=== PATIENT | male | born 1950 | race Caucasian/White ===

== ENCOUNTER 2016-12-24 12:48 | Emergency (ER) | payer OTHER ==
[~2016-12-24] VITALS: Ht 167.6 cm; Wt 77.1 kg
[~2016-12-24 12:48] MED LIST: AMOXICILLIN500 MG ORAL; CYCLOBENZAPRINE10 MG ORAL; FLOMAX0.4 MG ORAL; IBUPROFEN600 MG ORAL; PROSCAR5 MG ORAL
[2016-12-24] MEDS ORDERED: ATORVASTATIN CA10 MG ORAL (13:04)
[2016-12-24] MEDS ORDERED: METFORMIN HCL500 M1 ORAL (13:04)
[2016-12-24] MEDS ORDERED: ASPIR 8181 MG ORAL (13:04)
[2016-12-24 13:10] VITALS: BP 123/68
[2016-12-24] MEDS ORDERED: TAMIFLU75 MG ORAL (13:31)
[2016-12-24] MEDS ORDERED: PROMETHAZINE-C118 M1 ORAL (13:31)
[2016-12-24 13:48] VITALS: BP 123/68
--- NOTE | 2016-12-25 09:26 | Emergency Room Report ---
History of Present Illness General Chief Complaint: Flu Like Symptoms Source: Patient Present Illness HPI 66-year-old male presents ED complaining of runny nose, cough, bodyaches x1 day. States his low-grade fever. Notes generalized chills and bodyaches. 5/ 10. dull. Nonradiating. No other aggravating or relieving factors. Notes productive cough. States he did not receive flu vaccine this year. Denies any other associated symptoms Allergies: Uncoded Allergies: VITAMIN GROUP B (Allergy, Mild, Rash, 08/13/14) Patient History Past Medical History: DM Past Surgical History: none Pertinent Family History: none Social History: Denies: alcohol use, drug use, smoking Immunizations: UTD Reviewed Nursing Documentation: PMH: Agreed, PSxH: Agreed Nursing Documentation-PMH Past Medical History: No Stated History Hx Diabetes: Yes Review of Systems All Other Systems: negative except mentioned in HPI Physical Exam Vital Signs Date Time Temp Pulse Resp B/P Pulse Ox O2 Delivery O2 Flow Rate FiO2 12/24/16 12:59 99.5 86 16 123/68 99 Room Air Sp02 EP Interpretation: reviewed, normal General Appearance: no apparent distress, alert, GCS 15, non-toxic Head: normocephalic, atraumatic Eyes: bilateral eye PERRL, bilateral eye normal inspection ENT: hearing grossly normal, normal pharynx, no angioedema, normal voice Neck: full range of motion, supple/symm/no masses Respiratory: chest non-tender, lungs clear, normal breath sounds, speaking full sentences Cardiovascular #1: regular rate, rhythm, no edema Cardiovascular #2: 2+ carotid (R), 2+ carotid (L), 2+ radial (R), 2+ radial (L) , 2+ dorsalis pedis (R), 2+ dorsalis pedis (L) Gastrointestinal: normal bowel sounds, non tender, soft, non-distended, no guarding, no rebound Rectal: deferred Genitourinary: normal inspection, no CVA tenderness Musculoskeletal: back normal, gait/station normal, normal range of motion, non- tender Neurologic: alert, oriented x3, responsive, motor strength/tone normal, sensory intact, speech normal Psychiatric: judgement/insight normal, memory normal, mood/affect normal, no suicidal/homicidal ideation Reflexes: 3+ bicep (R), 3+ bicep (L), 3+ tricep (R), 3+ tricep (L), 3+ knee (R) , 3+ knee (L) Skin: normal color, no rash, warm/dry, well hydrated Lymphatic: no adenopathy Medical Decision Making Diagnostic Impression: Primary Impression: Influenza-like symptoms ER Course Hospital Course 66-year-old M presents to ED complaining of fever + bodyaches + cough x1 day Differential diagnoses include: URI, pharyngitis, otitis media, influenza Clinical course Patient placed on stretcher. After initial history physical exam reveals an elderly male in no acute distress. Bilateral TM unremarkable, no pharyngeal erythema. Lungs clear. No CVA tenderness. Clinical findings consistent with influenza. Given that I will treat with Tamiflu Diagnosis - influenza-like symptoms Stable and discharged home with prescriptions for tamiflu. drink plenty of fluids. Instructed to followup with PMD. Return to ED if symptoms recur or worsen Last Vital Signs Date Time Temp Pulse Resp B/P Pulse Ox O2 Delivery O2 Flow Rate FiO2 12/24/16 13:48 99.5 85 16 123/68 99 Room Air Status: improved Disposition: HOME, SELF-CARE Condition: Stable Scripts Codeine/Promethazine Hcl* (PROMETHAZINE-CODEINE SYRUP*) 118 Ml Syrup 5 ML ORAL Q6H Y for For Cough for 5 Days, ML 0 Refills Prov: MANNY ABBASI M.D. 12/24/16 Oseltamivir Phosphate (Tamiflu) 75 Mg Capsule 75 MG ORAL TWICE A DAY for 5 Days, CAP Prov: MANNY ABBASI M.D. 12/24/16 Referrals: NOT CHOSEN JOAN/,REFERRING (PCP) Patient Instructions: Influenza, Adult, [id number] MANNY ABBASI M.D. Dec 25, 2016 09:26
== END 2016-12-24 13:45 | disposition home or self-care (01) ==
LOC: EMR 13:29
DX: J11.1 Influenza due to unidentified influenza virus with other respiratory manifestations (principal); E11.9 Type 2 diabetes mellitus without complications
CPT/HCPCS: 99284

== ENCOUNTER 2017-06-17 17:07 | Emergency (ER) | payer OTHER ==
[~2017-06-17] VITALS: Ht 165.1 cm; Wt 71.7 kg
[~2017-06-17 17:07] MED LIST changes: +ASPIR 8181 MG ORAL; +ATORVASTATIN CA10 MG ORAL; +METFORMIN HCL500 M1 ORAL; +PROMETHAZINE-C118 M1 ORAL; +TAMIFLU75 MG ORAL
--- NOTE | 2017-06-17 17:23 | Emergency Room Report ---
History of Present Illness General Chief Complaint: Earache Source: Patient Present Illness HPI 66 YO Male presents to the ED C/O fullness and pain in the ears bilaterally with decreased hearing. pt. states he has been trying to clean his ears with toilet paper. denies q-tip use. denies fevers, chills, external ear pain, recent illness, PHILIP , or congestion. denies rashes or ear d/c. denies trauma to the ears. Pt. states he needs his ear cleaned out. Denies CP, Palpitations, LOC, AMS, dizziness, Changes in Vision, Sensation, paresthesias, or a sudden severe headache. Allergies: Uncoded Allergies: VITAMIN GROUP B (Allergy, Mild, Rash, 08/13/14) Patient History Past Medical History: see triage record Past Surgical History: none Pertinent Family History: none Immunizations: UTD Reviewed Nursing Documentation: PMH: Agreed, PSxH: Agreed Nursing Documentation-PMH Past Medical History: No History, Except For Hx Diabetes: Yes Review of Systems All Other Systems: negative except mentioned in HPI Physical Exam Vital Signs Date Time Temp Pulse Resp B/P Pulse Ox O2 Delivery O2 Flow Rate FiO2 06/17/17 17:11 97.3 59 18 141/55 98 Room Air Sp02 EP Interpretation: reviewed, normal General Appearance: no apparent distress, alert, GCS 15, non-toxic Head: normocephalic, atraumatic Eyes: bilateral eye PERRL, bilateral eye normal inspection ENT: hearing grossly normal, normal pharynx, no angioedema, normal voice, other - excessive cerumen in the both ear canals there is no evidence of TM infection or rupture, canal is WNL. no external ear tenderness. Neck: full range of motion, supple/symm/no masses Respiratory: lungs clear, normal breath sounds, speaking full sentences Cardiovascular #1: regular rate, rhythm, no edema Musculoskeletal: back normal, gait/station normal, normal range of motion, non- tender Neurologic: alert, oriented x3, responsive, motor strength/tone normal, sensory intact, speech normal Psychiatric: judgement/insight normal, memory normal, mood/affect normal Skin: normal color, no rash, warm/dry, well hydrated Lymphatic: no adenopathy Medical Decision Making PA Attestation Dr. sullivan is my supervising Physician whom patient management has been discussed with. Diagnostic Impression: Primary Impression: Excessive cerumen in both ear canals ER Course 66 YO Male presents to the ED C/O fullness and pain in the ears bilaterally with decreased hearing. pt. states he has been trying to clean his ears with toilet paper. denies q-tip use. denies fevers, chills, external ear pain, recent illness, PHILIP , or congestion. denies rashes or ear d/c. denies trauma to the ears. Pt. states he needs his ear cleaned out. Denies CP, Palpitations, LOC, AMS, dizziness, Changes in Vision, Sensation, paresthesias, or a sudden severe headache.. Ddx considered but are not limited to OM, OE, mastoiditis, TM perforation, FB, cerumen impaction. Vital signs: are WNL, pt. is afebrile H&PE are most consistent with possible ear infection will assess with otoscopy ORDERS: none required at this time, the diagnosis is clinical -OTOSCOPY: excessive cerumen in the both ear canals there is no evidence of TM infection or rupture, canal is WNL. no external ear tenderness. ED INTERVENTIONS: -Ear irrigation performed by implementation technician. - re-examination: pt. continues to have moderate cerumen in the right ear, d/ w pt. that he will be given a rx for debrox to soften the wax. Pt. is upset and wants his ear to be completely cleaned out today. d/w pt. that the medication will take several days to work. this was also d/w pt. by the on duty physician and ED nurse. pt. continues to be dissatisfied. d/w pt. that at this time he is stable for close out patient follow up. DISCHARGE: At this time pt. is stable for d/c to home. With rx for Debrox. Will provide printed patient care instructions, and any necessary prescriptions. Care plan and follow up instructions have been discussed with the patient prior to discharge. Last Vital Signs Date Time Temp Pulse Resp B/P Pulse Ox O2 Delivery O2 Flow Rate FiO2 06/17/17 17:11 97.3 59 18 141/55 98 Room Air Disposition: HOME, SELF-CARE Condition: Stable Scripts Carbamide Peroxide (DEBROX) 15 Ml Drops 10 DROP BOTH EARS TWICE A DAY for 4 Days, #15 ML 0 Refills Prov: Shira Mccormack P.A. 06/17/17 Patient Instructions: Anish Danielion Additional Instructions: Take medications as directed. Follow up with a Primary Care Provider in 3-5 days, even if your symptoms have resolved. --Please review list of primary care clinics, if you do not already have a primary care provider Return sooner to ED if new symptoms occur, or current symptoms become worse. - Please note that this Emergency Department Report was dictated using [employer] technology software, occasionally this can lead to erroneous entry secondary to interpretation by the dictation equipment. Shira Mccormack Jun 17, 2017 17:23
[2017-06-17 17:28] VITALS: BP 141/55
[2017-06-17] MEDS ORDERED: DEBROX15 M1 BOTH EARS (17:40)
[2017-06-17 18:10] VITALS: BP 141/55
== END 2017-06-17 18:10 | disposition home or self-care (01) ==
LOC: EMR 17:31
DX: H61.23 Impacted cerumen, bilateral (principal); E11.9 Type 2 diabetes mellitus without complications
CPT/HCPCS: 69210; 99283

== ENCOUNTER 2017-06-24 22:30 | Emergency (ER) | payer OTHER ==
[~2017-06-24] VITALS: Ht 172.7 cm; Wt 84.8 kg
[~2017-06-24 22:30] MED LIST changes: +DEBROX15 M1 BOTH EARS
[2017-06-24 23:00] VITALS: BP 156/70
[2017-06-24] MEDS ORDERED: AUGMENTIN 875-1 EAC1 ORAL (23:07)
--- NOTE | 2017-06-24 23:08 | Emergency Room Report ---
History of Present Illness General Chief Complaint: Puncture Wound Source: Patient Present Illness HPI Is a 66-year-old male with no significant past medical history. He presents with chief complaint of puncture wound to the left foot. He stepped on a merary nail about 4 hours ago. He was wearing tennis shoe. Denies any other injury. Throbbing pain to the sole of the foot. No other complaint. Allergies: Uncoded Allergies: VITAMIN GROUP B (Allergy, Mild, Rash, 08/13/14) Patient History Past Medical History: see triage record, old chart reviewed Past Surgical History: other Pertinent Family History: none Social History: Denies: smoking Immunizations: other Reviewed Nursing Documentation: PMH: Agreed, PSxH: Agreed Nursing Documentation-PMH Past Medical History: No History, Except For Hx Diabetes: Yes Review of Systems Eye: Denies: blurred vision, eye pain ENT: Denies: ear pain, nose congestion, throat swelling Respiratory: Denies: cough, shortness of breath Cardiovascular: Denies: chest pain, palpitations Gastrointestinal: Denies: abdominal pain, diarrhea, nausea, vomiting Musculoskeletal: Denies: back pain, joint pain Skin: Denies: rash Neurological: Denies: headache, numbness Endocrine: Denies: increased thirst, increased urine Hematologic/Lymphatic: Denies: easy bruising All Other Systems: negative except mentioned in HPI Physical Exam Vital Signs Date Time Temp Pulse Resp B/P Pulse Ox O2 Delivery O2 Flow Rate FiO2 06/24/17 22:51 97.7 62 16 156/70 100 Room Air Sp02 EP Interpretation: reviewed, normal General Appearance: well appearing, no apparent distress, alert Head: normocephalic, atraumatic Eyes: bilateral eye EOMI, bilateral eye PERRL ENT: hearing grossly normal, normal pharynx Neck: full range of motion, supple, no meningismus Respiratory: chest non-tender, lungs clear, normal breath sounds Cardiovascular #1: regular rate, rhythm, no murmur Gastrointestinal: normal bowel sounds, non tender, no mass, no organomegaly, no bruit, non-distended Musculoskeletal: back normal, gait/station normal, normal range of motion, other - Puncture wound to the sole of left foot. Tender to palpation. No abscess. Neurologic: alert, oriented x3 Psychiatric: mood/affect normal Skin: warm/dry Medical Decision Making Diagnostic Impression: Primary Impression: Puncture wound of left foot without foreign body Qualified Codes: S91.332A - Puncture wound without foreign body, left foot, initial encounter ER Course patient with a puncture wound to the foot. No foreign body. No abscess. We' ll discharge home. Antibiotics initiated here. Tetanus updated. Last Vital Signs Date Time Temp Pulse Resp B/P Pulse Ox O2 Delivery O2 Flow Rate FiO2 06/24/17 22:51 97.7 62 16 156/70 100 Room Air Status: improved Disposition: HOME, SELF-CARE Condition: Stable Scripts Amoxicillin/Potassium Clav 875-125* (AUGMENTIN 875-125 TABLET*) 1 Each Tablet 1 TAB ORAL TWICE A DAY, #14 TAB Prov: ARIANNE JHA M.D. 06/24/17 Patient Instructions: Puncture Wound Additional Instructions: Followup with your DrOnesimo in 2 to 3 days for recheck. Keep wound clean. Return if worse. ARIANNE JHA M.D. Jun 24, 2017 23:08
[2017-06-24] MEDS ORDERED: Augmentin 875mg Tab ORAL ONE (23:15)
[2017-06-24] MEDS ORDERED: Bacitracin Oint UD TOPIC ONE (23:15)
[2017-06-24] MEDS ORDERED: Tetanus/Diptheria/Pertussis Vaccine 0.5ml Syr IM ONE (23:15)
[2017-06-24 23:36] VITALS: BP 156/70
== END 2017-06-24 23:36 | disposition home or self-care (01) ==
LOC: EMR 23:30
DX: S91.332A Puncture wound without foreign body, left foot, initial encounter (principal); E11.9 Type 2 diabetes mellitus without complications; H61.23 Impacted cerumen, bilateral; Z23 Encounter for immunization; W45.0XXA Nail entering through skin, initial encounter; Y93.9 Activity, unspecified; Y92.9 Unspecified place or not applicable; Z88.8 Allergy status to other drugs, medicaments and biological substances
CPT/HCPCS: 69210; 90471; 90715; 96372; 99283

== ENCOUNTER 2019-07-05 11:25 | Emergency (ER) | payer MEDICARE, OTHER ==
[~2019-07-05] VITALS: Ht 162.6 cm; Wt 79.4 kg
[~2019-07-05 11:25] MED LIST changes: +AUGMENTIN 875-1 EAC1 ORAL
--- NOTE | 2019-07-05 11:40 | NUR ---
ED Nurse Note: pt walked in due to a mechanical fall happend today @11am. pt tripped on an uneven pavement near [place] [facility]. denies head trauma. pt presents with abrasion on the left knee and on the right palm. pt able to ambulate. will continue to monitor.
[2019-07-05] MEDS ORDERED: Neosporin Oint Ud Pkt TOPIC ONE (12:15)
--- NOTE | 2019-07-05 13:48 | Emergency Room Report ---
History of Present Illness General Chief Complaint: Lower Extremity Injury Source: Patient (Zeus Agrawal) Present Illness HPI 68-year-old male with history of hypertension diabetes both controlled here complaining of pain over her left knee as well as bilateral hands after a fall today. Patient reports that he fell without hitting his head or losing consciousness however try to prevent further injury by using outstretched hands. Superficial abrasion over the left knee and patient has full flexion and extension movements of the knee. Rates his pain over both hands 5 out of 10 without radiation. Denies tingling and numbness. No abrasions or lacerations noted on both hands. Denies other injuries, chest pain, shortness of breath, palpitation, abdominal pain, and other associated symptoms. Patient is up-to-date with his tetanus shot. (Zeus Agrawal) Allergies: Uncoded Allergies: VITAMIN GROUP B (Allergy, Mild, Rash, 08/13/14) Patient History Past Medical History: see triage record Past Surgical History: unable to obtain Pertinent Family History: none Immunizations: UTD Reviewed Nursing Documentation: PMH: Agreed; PSxH: Agreed (Zeus Agrawal) Nursing Documentation-PMH Past Medical History: No History, Except For Hx Diabetes: Yes (Zeus Agrawal) Review of Systems All Other Systems: negative except mentioned in HPI (Zeus Agrawal) Physical Exam Vital Signs Date Time Temp Pulse Resp B/P (MAP) Pulse Ox O2 Delivery O2 Flow Rate FiO2 07/05/19 11:28 97.5 70 18 148/83 (104) 98 Room Air Sp02 EP Interpretation: reviewed, normal General Appearance: no apparent distress, alert, GCS 15, non-toxic Head: normocephalic, atraumatic Eyes: bilateral eye normal inspection, bilateral eye PERRL ENT: hearing grossly normal, normal pharynx, no angioedema, normal voice Neck: full range of motion, supple/symm/no masses Respiratory: chest non-tender, lungs clear, normal breath sounds, speaking full sentences Cardiovascular #1: regular rate, rhythm, no edema, no murmur Cardiovascular #2: 2+ radial (R), 2+ radial (L), 2+ dorsalis pedis (R), 2+ dorsalis pedis (L) Gastrointestinal: non tender, soft Musculoskeletal: back normal, digits/nails normal, gait/station normal, non- tender, swelling - Palm of bilateral hands Neurologic: normal inspection, alert Psychiatric: normal inspection, judgement/insight normal Skin: abrasion - Left knee noninfected Lymphatic: normal inspection, no adenopathy (Zeus Agrawal) Medical Decision Making PA Attestation All diagnoses and treatment plans were reviewed and discussed with my supervising physician Dr. Irene (Zeus Agrawal) Medicare Attestation The history of Ginny Lugo has been reviewed and management options for him have been examined and discussed by Vladislav Irene. I have personally examined and interviewed the patient. (Vladislav Irene MD) Diagnostic Impression: Primary Impression: Contusion of right hand Additional Impressions: Contusion of left hand Abrasion, left knee, initial encounter ER Course 68-year-old male with history of hypertension diabetes both controlled here complaining of pain over her left knee as well as bilateral hands after a fall today. Patient reports that he fell without hitting his head or losing consciousness however try to prevent further injury by using outstretched hands. Superficial abrasion over the left knee and patient has full flexion and extension movements of the knee. Rates his pain over both hands 5 out of 10 without radiation. Denies tingling and numbness. No abrasions or lacerations noted on both hands. Denies other injuries, chest pain, shortness of breath, palpitation, abdominal pain, and other associated symptoms. Patient is up-to-date with his tetanus shot. Ddx considered but are not limited to: Hand sprain, hand sprain, hand fracture. Hand contusion, infected knee abrasion, noninfected knee abrasion, Vital signs: are WNL, pt. is afebrile H&PE are most consistent with : Bilateral hand contusion, left knee abrasion noninfected ORDERS: Hand x-ray bilateral, Tylenol, ibuprofen ED INTERVENTIONS: Wound clean and dressed, Cyril wrap, ibuprofen DISCHARGE: At this time pt. is stable for d/c to home. Will provide printed patient care instructions, and any necessary prescriptions. Care plan and follow up instructions have been discussed with the patient prior to discharge. Patient to follow-up with her primary care provider if worsening symptoms return to the emergency room (Zeus Agrawal) Other X-Ray Diagnostic Results Other X-Ray Diagnostic Results #1: X-Ray ordered: Left hand # of Views/Limited Vs Complete: 3 View Indication: Pain EP Interpretation: Yes PA Xray: Interpretation reviewed, by supervising MD, and agrees with findings. Interpretation: no dislocation, no soft tissue swelling, no fractures Impression: No acute disease Electronically Signed by: Zeus DANIEL Scribe Text After speaking to Dr. Crocker due to his report regarding foreign body observed left hand it was decided that due to no acute abrasions or lacerations in the hands does foreign bodies are old findings. Other X-Ray Diagnostic Results #2: X-Ray ordered: Right hand x-ray # of Views/Limited Vs Complete: 3 View Indication: Pain EP Interpretation: Yes PA Xray: Interpretation reviewed, by supervising MD, and agrees with findings. Interpretation: no dislocation, no soft tissue swelling, no fractures Impression: No acute disease Electronically Signed by: Zeus Pascal PA-C (Zeus Agrawal) Last Vital Signs Date Time Temp Pulse Resp B/P (MAP) Pulse Ox O2 Delivery O2 Flow Rate FiO2 07/05/19 11:28 97.5 70 18 148/83 (104) 98 Room Air (Zeus Agrawal) Disposition: HOME, SELF-CARE Condition: Stable Scripts Diclofenac Sodium (VOLTAREN) 100 Gm Gel..gram. 2 GM TP TID, #100 GM Prov: Zeus Agrawal 07/05/19 Acetaminophen* (ACETAMINOPHEN EXTRA STRENGTH*) 500 Mg Tablet 1000 MG ORAL Q12HR, #21 TAB 0 Refills Prov: Zeus Agrawal 07/05/19 Referrals: NON PHYSICIAN (PCP) Patient Instructions: Abrasion, [id number], Hand Contusion, [id number] Additional Instructions: Take medication as directed follow-up with your primary care provider if worsening symptoms return to the emergency room Zeus Agrawal Jul 05, 2019 13:48 Vladislav Irene MD Jul 08, 2019 13:02
[2019-07-05] MEDS ORDERED: VOLTAREN100 G1 TP (13:49)
[2019-07-05] MEDS ORDERED: ACETAMINOPHEN500 M3 ORAL (13:49)
--- NOTE | 2019-07-05 13:50 | NUR ---
ED Nurse Note: MISAEL WRAP APPLIED ON PT LEFT WRIST AND LEFT KNEE, PT STATED THAT RIGHT HAND DOESNT HURT BAD.
[2019-07-05 13:55] VITALS: BP 138/80
--- NOTE | 2019-07-05 13:55 | NUR ---
ER DISCHARGE NOTE: Patient is cleared to be discharged per ERMD, pt is aox4, on room air, with stable vital signs. pt was given dc and prescription instructions, pt was able to verbalize understanding, pt id band removed without complications. pt is able to ambulate with steady gait. pt took all belongings.
--- NOTE | 2019-07-05 15:18 | Diagnostic Imaging Report ---
Indication: Pain Technique: 2 views of the left hand Comparison: none Findings: There is a metallic foreign body projected adjacent to the first distal phalanx. No acute fractures. No dislocations. The joint spaces are preserved. Impression: No acute bony trauma Metallic foreign body in the distal thumb soft tissues, acuity indeterminate. Correlate with clinical history Findings discussed by phone with the ER nurse practitioner at the time of interpretation
--- NOTE | 2019-07-05 15:18 | Diagnostic Imaging Report ---
Indication: Trauma, pain Technique: 2 views of the right hand Comparison: none Findings: Tiny metallic foreign body projects within the soft tissue adjacent to the terminal tuft of the fourth distal phalanx. No acute fractures. No dislocations. The joint spaces are preserved. Impression: No acute bony trauma Positive for metallic soft tissue foreign body adjacent to the terminal tuft of the distal phalanx Findings discussed by phone with the ER nurse practitioner at the time of interpretation
== END 2019-07-05 13:55 | disposition home or self-care (01) ==
LOC: EMR 12:22
DX: S80.212A Abrasion, left knee, initial encounter (principal); S60.222A Contusion of left hand, initial encounter; S60.221A Contusion of right hand, initial encounter; W19.XXXA Unspecified fall, initial encounter; E11.9 Type 2 diabetes mellitus without complications; Z91.048 Other nonmedicinal substance allergy status; I10 Essential (primary) hypertension
CPT/HCPCS: 99283

== ENCOUNTER → 2019-09-16 | Emergency (ER) | payer MEDICARE ==
[~2019-09-16] VITALS: Ht 167.6 cm; Wt 83.9 kg
[~2019-09-16] MED LIST changes: +ACETAMINOPHEN500 M3 ORAL; +BACITRACIN15 GM TOPIC; +CEPHALEXIN500 MG ORAL; +Cephalexin 500mg cap ORAL ONE; +Lidocaine 1% MPF 10mg/ml 5ml INJ ONE; +Neosporin Oint Ud Pkt TOP ONE; +VOLTAREN100 G1 TP
[2019-09-16 10:58] VITALS: BP 154/80
--- NOTE | 2019-09-16 12:54 | Emergency Room Report ---
History of Present Illness General Chief Complaint: Upper Extremity Injury Source: Patient, Family Member Present Illness HPI 1 week ago the patient was working with wood. A splinter entered into his right thumb. He pulled some out. He is been poking the lesion with a needle. He is uncertain whether there is still a piece inside. The pain is increased. There is no numbness. He denies fevers or chills. He rates the pain 2/10 at this time. Is throbbing and aching. It does not radiate to his hand. There is some redness. He is right-handed. His tetanus was 1 year ago. History of high cholesterol, BPH and gastric ulcer. 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 Nursing Documentation: PMH: Agreed; PSxH: Agreed Nursing Documentation-PMH Past Medical History: No History, Except For Hx Diabetes: Yes Review of Systems Constitutional: Reports: see HPI Musculoskeletal: Reports: see HPI Skin: Reports: see HPI Neurological: Reports: see HPI Physical Exam Vital Signs Date Time Temp Pulse Resp B/P (MAP) Pulse Ox O2 Delivery O2 Flow Rate FiO2 09/16/19 10:58 98.8 87 16 154/80 (104) 99 Room Air Sp02 EP Interpretation: reviewed, normal General Appearance: well appearing, no apparent distress, GCS 15 Head: normocephalic Eyes: bilateral eye normal inspection, bilateral eye PERRL ENT: moist mucus membranes Cardiovascular #1: regular rate, rhythm Gastrointestinal: normal inspection Musculoskeletal: gait/station normal, tenderness - Right thumb Neurologic: alert, oriented x3, distal neuro normal, grossly normal Psychiatric: mood/affect normal Skin: other - Lesion pulp of right thumb with minimal erythema Procedures Incision and Drainage Incision and Drainage : Consent: Verbal Site: Right thumb Blade Size: 11 I & D Procedure: betadine prep, sterile drapes applied, sterile dressing applied Wound Location: upper extremity Wound's Depth, Shape: superficial Wound Length (cm): 0 Wound Explored: contaminated Irrigated w/ Saline (ccs): 20 Anesthesia: 1% Lidocaine Volume Anesthetic (ccs): 0 Splint Applied?: No Sling Applied?: No Patient Tolerated: Well Complications: None Progress After Betadine prep, lidocaine infused. Patient kept jerking back in the thumb had to be secured. Anesthesia was obtained. The lesion was incised and unroofed. Pus was expressed. The lesion was explored and no foreign body was found. The wound was irrigated with saline. Bacitracin was applied. Medical Decision Making Diagnostic Impression: Primary Impression: Foreign body of thumb, right, infected ER Course Patient presents with possible foreign body right thumb. Differential includes foreign body, abscess, cellulitis amongst others. X-rays indicated as well as incision, drainage and exploration. Keflex ordered X-rays reveal no foreign body thumb. See procedure note. Discussed treatment plan with patient. Also discussed the possibility that foreign body was still retained and he may need to see a specialist. Patient stable for outpatient observation and treatment. Other X-Ray Diagnostic Results Other X-Ray Diagnostic Results : X-Ray ordered: R hand # of Views/Limited Vs Complete: 3 View Indication: Other EP Interpretation: Yes Interpretation: no dislocation, no soft tissue swelling, no fractures, other - no foreign body thumb. Question of radiopaque foreign body ring finger. Impression: No acute disease Electronically Signed by: Electronically signed by Les Resendez MD Last Vital Signs Date Time Temp Pulse Resp B/P (MAP) Pulse Ox O2 Delivery O2 Flow Rate FiO2 09/16/19 10:58 98.8 87 16 154/80 (104) 99 Room Air Status: improved Disposition: HOME, SELF-CARE Condition: Improved Scripts Bacitracin (Bacitracin) 28.4 Gm Oint...g. 1 APPLIC TOPIC BID, #20 GM Prov: Les Resendez MD 09/16/19 Cephalexin* (KEFLEX*) 500 Mg Capsule 500 MG ORAL EVERY 6 HOURS, #28 CAP Prov: Les Resendez MD 09/16/19 Les Resendez MD Sep 16, 2019 12:54
--- NOTE | 2019-09-16 13:22 | Diagnostic Imaging Report ---
Indication: left hand pain. Comparison: None Findings: 3 views of the left hand were obtained. Normal alignment is demonstrated. There is a tiny foreign body at the tip of the fourth digit. Correlate clinically. No acute fractures, erosions, or periosteal reaction are seen. Soft tissues are unremarkable. Impression: Tiny radiopaque foreign body involving the tip of the fourth digit. Please correlate clinically.
== END | disposition home or self-care (01) ==
LOC: EMR 12:20
DX: S60.351A Superficial foreign body of right thumb, initial encounter (principal); L08.9 Local infection of the skin and subcutaneous tissue, unspecified; E11.9 Type 2 diabetes mellitus without complications; X58.XXXA Exposure to other specified factors, initial encounter; Y92.9 Unspecified place or not applicable
CPT/HCPCS: 99283